=== PATIENT | female | born 1965 | race Caucasian/White ===

== ENCOUNTER 2022-02-03 10:05 | Outpatient (CLI) | payer BC, SELFPAY ==
--- OUTSIDE RECORDS SUMMARY | 2022-02-03 10:07 | XMS_ITS | Clinical Summary ---
:1965 Author Organization [employer] [facility] [place] [address] Care Team Providers Name Role Phone Anabel Gautam Primary Care Provider Allergies No known active allergies Medications Medication Sig Dispensed Refills Start Date End Date Status MULTIVITAMIN TAB take 1 tablet by 0 07/31/2008 Active oral route once daily with food tamoxifen (NOLVADEX) 20 Take 1 tablet by 0 4 Active mg tablet mouth once daily. DOCOSAHEXANOIC ACID/EPA Take by mouth. 0 Active (FISH OIL ORAL) vitamin B complex Take 1 tablet by 0 12/23/2018 Active (B-COMPLEX) tablet mouth once daily. cholecalciferol, Vitamin Take by mouth 1 Bottle 0 02/26/2020 Active D3, (D--CONNIE) 10 mcg/mL once daily. A (400 unit/mL) drops few drops in morning coffee. Coenzyme Q10 (CO Q-10) Take 1 capsule 0 02/26/2020 Active 10 mg cap by mouth once daily. hydroCHLOROthiazide Take 1 Tablet 90 Tablet 3 06/12/2021 Active (HCTZ) 25 mg (25 mg) by mouth tabletIndications: once daily. Hypertension, unspecified type losartan (COZAAR) 100 mg Take 1 Tablet 90 Tablet 3 06/12/2021 Active tabletIndications: (100 mg) by Hypertension, mouth once unspecified type daily. metoprolol succinate Take 1 Tablet 90 Tablet 3 06/12/2021 Active (TOPROL XL) 50 mg (50 mg) by mouth sustained-release once daily. tabletIndications: Hypertension, unspecified type albuterol HFA (PRO-AIR; Inhale 1-2 Puffs 1 Each 0 2 Active VENTOLIN; PROVENTIL) 90 by mouth every 4 mcg/actuation hours if needed inhalerIndications: for Shortness of Wheezing Breath 1st choice. Lactobacillus rhamnosus Chew by mouth. 0 07/16/2021 Active GG 5 billion cell chew durable medical SQUARED TOE POST 1 Each 0 07/16/2021 Active equipment OP SHOE, MEDIUM, (DME)Indications: Foot REF: [id number] injury, left, initial encounter polyethylene Drink 2 liters 4000 mL 0 11/18/2021 A ctive glycol-electrolyte (half the (GOLYTELY) bottle) the day [id number] -5.86 before gram colonoscopy and suspensionIndications: 2 liters Encounter for screening (remaining prep) colonoscopy 4-6 hours prior to colonoscopy appointment. amoxicillin-clavulanate Take 1 Tablet by 20 Tablet 0 2 875-125 mg tablet mouth two times 2 (AUGMENTIN)Indications: daily with meals Acute non-recurrent for 10 days. sinusitis, unspecified location Active Problems Problem Noted Date HTN (hypertension) 10/19/2019 Osteoporosis screening 07/19/2018 Overview: Bone density done at [facility] June 2018, normal. Adenomatous polyp of ascending colon 07/15/2016 Overview: Colonoscopy 06/2016 polyp repeat in 5 yea rs Colonoscopy 11/2021 normal, repeat in 7 years Acquired absence of right breast 10/02/2014 Acquired absence of breast and nipple 06/06/2014 DCIS (ductal carcinoma in situ) of breast 07/11/2013 Overview: Extensive; s/p R mastectomy; no chemothe rapy or radiation; on Tamoxifen Chronic sinusitis 05/04/2013 Enchondroma 08/01/2008 Overview: right proximal phalanx of right index fi nger: encondroma, found on x-ray and also did MRI June 2008. Unspecified adjustment reaction 07/05/2008 Resolved Problems Problem Noted Date Resolved Date Acquired absence of right breast 01/21/2015 016 Encounters Date Type Specialty Care Team Description 01/21/2022 Telemedicine Anabel Gautam PA [place] Problem (Has been two weeks-pain and pressure in forehead-green nasal drainage and si nus headache-has to fly on Wednesday ); Teleh ealth (Virtual visit, no vitals taken) 01/21/2022 Travel 01/19/2022 Telephone Anabel Gautam PA Appo intment Request 01/12/2022 Lab Requisition Tiffanie Stein NP 01/06/2022 Telephone Vincent Dominique MD Heal Maintenance Update 11/25/2021 Procedure Only Vishal Joya, Proc edure (colonoscopy) 11/25/2021 Travel 11/19/2021 Telephone Vishal Joya, Appoin tment Reminder 11/18/2021 Telephone Vishal Joya, Medica tion Management 11/07/2021 Office Visit Janee Puga PA Derm Problem 11/07/2021 Travel from Last 3 Months Immunizations Name Administration Dates Next Due AMB Influenza, (Flumist) Live 12/16/2009 Intranasal,LAIV4 (Flu Clinic Only) COVID-19 vaccine (ZeroG WirelessNTClearGist 06/01/2020, 05/11/2020 30mcg/0.3mL) PF, MDV Influenza RIV4 (Age 18+ Years) 01/02/2022, 01/08/2021 PRESERV FREE Influenza, IIV3 (Age >=3 years) 03/06/2013, 11/29/2008, 1205/2007, 12/13/2006, 12/02/2005, 12/27/2004 Influenza, IIV4 01/24/2020, 12/23/2018, 11/22/2017, 11/22/2016, 12/04/2013 Influenza, IIV4 (=>6mos) MDV 12/02/2015 Tdap, Unspecified 02/08/2012 Zoster (Shingrix-RZV, recombinant) 12/23/2018 Family History Medical History Relation Name Comments Cancer Father lung, was a smok er Other Father spinal stenosis Diabetes Maternal Grandfather Osteoporosis Mother Stroke Mother Anesthesia Problem No Family History Blood Disease No Family History Cancer-breast No Family History Cancer-ovarian No Family History Relation Name Status Comments Father Maternal Grandfather Mother Social History Tobacco Use Types Packs/Day Years Used Date Smoking Tobacco: Never Smokeless Tobacco: Never Tobacco Cessation: Counseling Given: Yes Alcohol Use Standard Drinks/Week Comments No 0 (1 standard drink = 0.6 oz pure alcoho l) Sex Assigned at Date Recorded Not on file COVID-19 Exposure Response Date Recorded In the last 10 days, have you been in contact with No / Unsu re 01/21/2022 9:29 AM CURRENCY EXCHANGE SPECIALIST someone who was confirmed or suspected to have Coronavirus/COVID-19? Obstetrics History Last Filed Vital Signs Vital Sign Reading Time Taken Comments Blood Pressure 135/88 10/01/2021 9:04 AM CDT Pulse 63 10/01/2021 9:04 AM CDT Temperature 37.2 ??C (99 ??F) 10/01/2021 9:04 AM CDT Respiratory Rate 18 09/23/2015 2:46 PM CDT Oxygen Saturation 98% 10/01/2021 9:04 AM CDT Inhaled Oxygen Concentration - - Weight 79.8 kg (176 lb) 10/01/2021 9:04 AM CDT Height 167 cm (5' 5.75) 02/26/2020 3:46 PM CURRENCY EXCHANGE SPECIALIST Body Mass Index 28.63 02/26/2020 3:46 PM CURRENCY EXCHANGE SPECIALIST Plan of Treatment Upcoming Encounters Date Type Specialty Care Team Description 02/03/2022 Office Visit Vincent Dominique MD Arrived [address] [facility] [place] [address] (Wo rk) Health Maintenance Due Date Last Done Comments HIV for age 15-65 1981 Hepatitis C screening for age 0305/16/1984 18-79 Zoster (shingles) series for age 1202/17/2019 12/23/2018 50+ (2 of 2) BMI (ht and wt on same day) for 02/25/2021 02/26/2020, 11/0 02/2018, age 18+ 05/25/2018, Additional history exists Depression screening for age 12+ 10/03/2021 10/03/2020, , 05/20/2018, Additional history exists Tetanus booster 02/07/2022 02/08/2012, 01/29/2012 (Completed outside of [facility]) COVID-19 vaccine series (4 - 02/27/2022 01/02/2022, 021, Booster for Pfizer series) 05/11/2020 Mammogram for age 45-75 04/07/2022 04/07/2021, 04/03/2020, 03/29/2019, Additional history exists Lipids for age 45-75 05/27/2026 05/27/2021, 07/07/2019, 12/24/2017, Additional history exists Pap test for age 21-65 01/09/2027 01/09/2022, 09/04/2016, 09/04/2016, Additional history exists Colonoscopy through age 75 11/26/2031 11/25/2021, , 07/14/2016, Additional history exists Tdap Completed 02/08/2012 Influenza for age 50-64 Completed 01/02/2022, 01/08/2021, 01/24/2020, Additional history exists Medical Devices Implanted Type Area Press Tender Short Goods Device Shelf Model / Identifier Expiration Serial / Date Lot [id number] 550cc Memorygel Rnd High Smooth Silcn [[id number]] Right: [employer] 01/10/2019 [id number] / Implanted: Qty: 1 on 06/06/2014 at [facility] Breast [employer] [id number] / [id number] Procedures Procedure Name Priority Date/Time Associated Comments Diagnosis AMB EPIDURAL STEROID Routine 02/03/2022 7:35 AM Lumbar INJECTION CURRENCY EXCHANGE SPECIALIST radiculopathy Lumbar disc herniation LAB TRACKING EVENT Routine 01/09/2022 12:00 PM CURRENCY EXCHANGE SPECIALIST HPV THIN PREP Routine 01/09/2022 12:00 Results fo r this PM CURRENCY EXCHANGE SPECIALIST procedure are i n the results section. COLONOSCOPY 11/25/2021 1:03 PM Results f or this CDT procedure are i n the results section. from Last 3 Months Results LAB TRACKING EVENT (01/09/2022 12:00 PM CURRENCY EXCHANGE SPECIALIST) Specimen Anatomical Collection Method Collection Time Receive d Time (Source) Location / / Volume Laterality Other (Other) Client Collect / 01/09/2022 12:00 2021 5:20 Unknown PM CURRENCY EXCHANGE SPECIALIST PM CURRENCY EXCHANGE SPECIALIST Tiffanie Stein NP LAB BILL ONLY Performing Organization Address [facility] Phon e Number [facility] [address] [place] [id number] LABORATORY-CENTRAL 2000 LABORATORY HPV HIGH RISK (01/09/2022 12:00 PM CURRENCY EXCHANGE SPECIALIST) Analysis Performed At Patho logist Time Signature TYPE 16 Negative Negative 01/17/2022 [facility] 12:53 PM CURRENCY EXCHANGE SPECIALIST LABORATORY-JDUD TRAL LABORATORY TYPE 18 Negative Negative 01/17/2022 [facility] 12:53 PM CURRENCY EXCHANGE SPECIALIST LABORATORY-JUDD TRAL LABORATORY OTHER HIGH Negative Negative 01/17/2022 [facility] RISK TYPES 12:53 PM CURRENCY EXCHANGE SPECIALIST LABORATORY-JUDD TRAL LABORATORY Specimen Anatomical Collection Method Collection Time Receive d Time (Source) Location / / Volume Laterality Other (Cervical) 01/09/2022 12:00 022 8:40 PM CURRENCY EXCHANGE SPECIALIST AM CURRENCY EXCHANGE SPECIALIST Narrative [facility] LABORATORY-CENTRAL LABORAT ORY - 01/17/2022 12:53 PM CURRENCY EXCHANGE SPECIALIST HPV types 16, 18, 31, 33, 35, 39, 45, 51, 52, 56, 58, 59, 66 and 68 DNA were undetectable or below the pre-set threshold. Methodology: Edward Catina 4800 HPV Test Tiffanie Stein NP MICROBIOLOGY Performing Organization Address City/[facility] Phon e Number [facility] [address] [place] [id number] LABORATORY-CENTRAL 2000 LABORATORY COLONOSCOPY (11/25/2021 1:03 PM CDT) Specimen (Source) Anatomical Collection Method Collection Time Re ceived Time Location / / Volume Laterality 11/25/2021 1:03 PM CDT Narrative This result has an attachment that is no t available. Transcriptions Vishal Joya MD - 11/25/2021 2: 11 PM CDT Patient Name: Deborah Robert Procedure Rishi e: 11/25/2021 Gender: Female Date of : 1965 Admit Type: Outpatient Procedure: Colonoscopy Proceduralist: Vishal Joya MD , Airam Lee RN (Nurse), Nayana Negro (Nurse) Indications/Pre-Op Diagnosis: High risk colon cancer surveillance: Personal history of adenoma less than 10 mm in s [place], Last colonoscopy: August 2016 Medications: Fentanyl 100 micrograms IV, Midazolam 3 mg IV, The level of sedation administered was moderate Procedure Description: The patient had risks, benefits and alt ernatives explained to and gave informed consent. The patient had a sta ble cardiopulmonary status and judged an adequate candidate for consci ous sedation. The Colonoscope was passed through the anus and advanced to the cecum, identified by appendiceal orifice and i leocecal valve. The colonoscopy was performed without difficulty. The p atient tolerated the procedure well. The quality of the bowel preparat ion was good. The ileocecal valve, appendiceal orifice, and rectum were photographed. Complications: No immediate complication s. Estimated Blood Loss & Specimen: Estimated blood loss: none. Specimen co llected - None Findings: The perianal and digital rectal examina tions were normal. The entire examined colon appeared norm al. Impressions/Post-Op Diagnosis: - The entire examined colon is normal. - No specimens collected. Recommendation: - Patient has a contact number availabl e for emergencies. The signs and symptoms of potential delayed complicat ions were discussed with the patient. Return to normal activities to [place]. Written discharge instructions were provided to the patie nt. - Resume previous diet. - Continue present medications. - Repeat colonoscopy in 7 years for murphy veillance. Moderate Sedation: A time out was performed before the pro cedure. Moderate (conscious) sedation was administered by the endosc opy nurse and supervised by the endoscopist. The following parameters w ere monitored: oxygen saturation, heart rate, blood pressure, EKG, CO2, r espiratory rate, adequacy of pulmonary ventilation and reponse to ca re. Please refer to the patient's medical r ecord flowsheets and nursing notes for moderate sedation details. Total physician intraservice time was 1 4 minutes. Vishal Joya MD 11/25/2021 2:10:45 PM This report has been signed electronical ly. Note Initiated On: 11/25/2021 1:03 PM Procedure Code(s): --- Professional --- 73600, Colonoscopy, flexible; diagnosti c, including collection of specimen(s) by brushing or washing, when performed (separate pr ocedure) Diagnosis Code(s): --- Professional --- Z86.010, Personal history of colonic po lyps CPT copyright 2020 [employer]. All rights reserved. The codes documented in this report are preliminary and upon software design engineer review may be revised to meet current compliance re quirements. Scope In: 1:52:54 PM Scope Withdrawal Time 0 hours 7 minutes 31 seconds Scope Out: 2:04:27 PM Vishal Joya MD PROCEDURE ORD from Last 3 Months Insurance Payer Benefit Plan / Subscriber ID Effective Dates Phone Addre ss Type Group BLUE CROSS BLUE CROSS OF [id number] 2018-Present [address] [place] [address] Advance Directives Latest Code Status on File Code Status Date Activated Date Inactivated Comments Full Code 01/21/2015 11:36 AM 01/21/2015 2:49 PM Code Status History Code Status Date Activated Date Inactivated Comments Full Code 10/02/2014 10:09 AM 10/02/2014 3:20 PM Full Code 06/06/2014 7:12 AM 06/06/2014 12:49 PM Care Teams Hot Metal Charger Relationship Specialty Start Date End Date Anabel Gautam PA PCP - General Family Practice 01/15/15 [address] [place] [address]
--- NOTE | 2022-03-02 11:58 | ONC.NURNOTE ---
Patient called to say her tamoxifen needs to be refilled. info given to [facility]. RN
== END 2022-02-03 10:06 | disposition home or self-care (01) ==
LOC: INJ CL 10:06
PROVIDERS: PCP Physician Assistant; Visit Provider Family Medicine
DX: M54.16 Radiculopathy, lumbar region (principal)
CPT/HCPCS: 62323; J0702; Q9966

== ENCOUNTER 2022-04-24 11:08 | Outpatient (CLI) | payer BC, SELFPAY ==
--- NOTE | 2022-04-24 11:15 | CRLHL7_ITS ---
For Patients: As a result of the Century Cures Act, medical imaging exams and procedure reports are released immediately into your electronic medical record. You may view this report before your referring provider. If you have questions, please contact your health care provider. RIGHT UPPER EXTREMITY ULTRASOUND, 04/24/2022 CLINICAL HISTORY: RIGHT axillary swelling and tenderness. RIGHT mastectomy approximately 7 years ago. TECHNIQUE: Directed RIGHT axillary ultrasound with this radiologist present. FINDINGS: Only normal soft tissue is identified. No lymphadenopathy. No masses. No fluid collections. These findings were discussed in detail with the patient. IMPRESSION: Negative RIGHT axillary ultrasound. Further imaging should be based on clinical grounds. BI-RADS Category 1: Negative A lay language report of this examination will be provided to the patient. DU LENNON M.D. Transcribed: 1:29 p.m. [email or web address] JR/Dictated by: Du Lennon MD @ 04/24/2022 12:27:00 PM (Electronically Signed)
== END 2022-04-24 11:09 | disposition home or self-care (01) ==
LOC: US 11:10
PROVIDERS: PCP Physician Assistant; Visit Provider Registered Nurse
DX: R22.31 Localized swelling, mass and lump, right upper limb (principal)
CPT/HCPCS: 76882

== ENCOUNTER 2022-08-04 13:15 | Outpatient (RCR) | payer BC, SELFPAY | END 2022-11-19 08:27 | disposition home or self-care (01) | PROVIDERS: PCP Physician Assistant; Visit Provider Family Medicine | DX: M54.16 Radiculopathy, lumbar region (principal); M51.26 Other intervertebral disc displacement, lumbar region; M54.12 Radiculopathy, cervical region; M48.02 Spinal stenosis, cervical region; Z51.89 Encounter for other specified aftercare | CPT/HCPCS: 97012; 97110; 97112; 97140; 97162; 97530; 97535 ==

== ENCOUNTER 2022-09-01 10:07 | Outpatient (CLI) | payer BC, SELFPAY | END 2022-09-01 10:08 | disposition home or self-care (01) | LOC: INJ CL 10:09 | PROVIDERS: PCP Student in an Organized Health Care Education/Training Program; Visit Provider Family Medicine | DX: M54.16 Radiculopathy, lumbar region (principal) | CPT/HCPCS: 64483; 64484; J1100; Q9966 ==

== ENCOUNTER 2022-11-05 09:40 | Outpatient (RCR) | payer BC, SELFPAY ==
[2022-10-01 11:49] VITALS: BP 116/70; PULSE 67; RESP 18; TEMP 36.9; O2SAT 98
[2022-10-30 14:43] LABS: Estradiol Premenol Female 20 pg/mL
[2022-10-30 21:58] LABS: Follicle Stimulating Hormone 19.2 IU/L; Luteinizing Hormone 9.2 IU/L
== END 2023-03-30 23:59 | disposition home or self-care (01) ==
LOC: CCIC 09:40
PROVIDERS: PCP Student in an Organized Health Care Education/Training Program; Referring Provider Student in an Organized Health Care Education/Training Program; Visit Provider Physician Assistant
DX: C50.911 Malignant neoplasm of unspecified site of right female breast (principal); Z17.0 Estrogen receptor positive status [ER+]; Z79.810 Long term (current) use of selective estrogen receptor modulators (SERMs); Z90.11 Acquired absence of right breast and nipple
CPT/HCPCS: 36415; 82670; 83001; 83002; 99212; 99214; 99215

== ENCOUNTER 2023-06-22 14:45 | Outpatient (RCR) | payer BC, SELFPAY | END 2023-06-24 11:05 | disposition home or self-care (01) | PROVIDERS: PCP Student in an Organized Health Care Education/Training Program; Visit Provider Specialist | DX: Z48.89 Encounter for other specified surgical aftercare (principal); M48.02 Spinal stenosis, cervical region; Z51.89 Encounter for other specified aftercare; M51.26 Other intervertebral disc displacement, lumbar region | CPT/HCPCS: 97110; 97140; 97163; 97530 ==

== ENCOUNTER 2023-06-28 14:55 | Outpatient (RCR) | payer BC, SELFPAY ==
--- NOTE | 2023-04-15 14:57 | ONC.NURNOTE ---
Patient called to schedule her 10 year follow up. Prefers to see an MD to speak with them about possible Tamoxifen studies for those who are not in menopause. Encouraged patient to call a week a head of time to put a bug in the MDs ear.
[2023-06-28 16:20] LABS: Albumin* 4.5 g/dL (3.3-5.0)
[2023-06-28 16:22] LABS: Bilirubin Total* 0.6 mg/dL (0.1-1.5); Total Protein* 7.5 g/dL (6.0-8.3)
[2023-06-28 16:23] LABS: Alanine Aminotransferase* 22 U/L (4-35); Alkaline Phosphatase* 62 U/L (40-150); Aspartate Amino Transferase* 32 U/L (12-35)
== END 2023-12-25 23:59 | disposition home or self-care (01) ==
LOC: CCIC 14:55
PROVIDERS: PCP Student in an Organized Health Care Education/Training Program; Referring Provider Student in an Organized Health Care Education/Training Program; Visit Provider Internal Medicine Hematology & Oncology
DX: C50.911 Malignant neoplasm of unspecified site of right female breast (principal); Z17.0 Estrogen receptor positive status [ER+]; Z79.810 Long term (current) use of selective estrogen receptor modulators (SERMs); Z90.11 Acquired absence of right breast and nipple
CPT/HCPCS: 36415; 80076; 99213; 99214; G0463

== ENCOUNTER 2024-11-14 15:00 | Outpatient (RCR) | payer BC, SELFPAY | END 2025-01-05 08:30 | disposition home or self-care (01) | PROVIDERS: PCP Student in an Organized Health Care Education/Training Program; Visit Provider Family Medicine | DX: M54.12 Radiculopathy, cervical region (principal); R20.0 Anesthesia of skin; R20.2 Paresthesia of skin; M50.30 Other cervical disc degeneration, unspecified cervical region; M48.02 Spinal stenosis, cervical region; Z51.89 Encounter for other specified aftercare | CPT/HCPCS: 97110; 97162 ==